=== PATIENT | female | born 1995 | race Caucasian/White ===

== ENCOUNTER 2017-06-13 | Emergency (ER) | payer OTHER | END 2017-06-13 18:40 | disposition home or self-care (01) | DRG 607 | CPT/HCPCS: 99282 ==

== ENCOUNTER 2018-07-05 07:18 | Emergency (ER) | payer SELFPAY ==
[2018-07-05] MEDS ORDERED: SODIUM CHLORIDE 0.9% 1000ML 1,000 ML IV ONE (07:26)
[2018-07-05] MEDS ORDERED: ONDANSETRON HCL 4 MG/2 ML SOL IV ONE (07:30)
[2018-07-05 07:48] LABS: BASOPHILS % (AUTO) 0 % (0-3); EOSINOPHILS % (AUTO) 0 % (0-9); HEMATOCRIT 45 % (35-47); HEMOGLOBIN 14.9 gm/dl (12.0-15.5); LYMPHOCYTES % (AUTO) 9.6 % (10-50); MEAN CORPUSCULAR HEMOGLOBIN 29.9 pg (27.0-32.0); MEAN CORPUSCULAR HGB CONC 32.8 gm/dl (32.0-36.0); MEAN CORPUSCULAR VOLUME 91 fL (81-99); MONOCYTES % (AUTO) 8.9 % (0-12); NEUTROPHILS % (AUTO) 80.9 % (37-80)
[2018-07-05 07:59] LABS: ALBUMIN 3.6 gm/dl (3.4-5.0); BILIRUBIN,TOTAL 1.2 mg/dl (0.2-1.0); CALCIUM 9.1 mg/dl (8.5-10.1); CARBON DIOXIDE 26.6 mEq/L (21-32); CREATININE 0.78 mg/dl (0.60-1.00); TOTAL PROTEIN 8.2 gm/dl (6.4-8.2)
[2018-07-05] MEDS ORDERED: ONDANSETRON HCL 4 MG/2 ML SOL ONE (08:00)
[2018-07-05 08:12] VITALS: RESP 16
[2018-07-05] MEDS ORDERED: MORPHINE SULFATE 10 MG/ML SOL IV ONE ×2 (08:43→11:35)
[2018-07-05 08:56] LABS: APPEARANCE,URINE Slightly Cloudy; BILIRUBIN,URINE NEGATIVE (NEGATIVE); COLOR,URINE Yellow; GLUCOSE, URINE (UA) NEGATIVE (NEGATIVE); KETONES,URINE NEGATIVE (NEGATIVE); LEUKOCYTE ESTERASE ,URINE 2+ (NEGATIVE); NITRATE,URINE NEGATIVE (NEGATIVE); OCCULT BLOOD,URINE TRACE INTACT (NEG-TRACE)
[2018-07-05 09:16] LABS: BACTERIA 1+ (< 1+); CRYSTALS NEGATIVE (0-3 AVE/HPF); EPITHELIAL CELLS 0-3 (SQUAMOUS); RBC,URINE 0-2 (0-3AV/HPF); WBC,URINE 20-30 (0-5AV/HPF)
[2018-07-05] MEDS ORDERED: MORPHINE SULFATE 10 MG/ML SOL ONE ×2 (09:22→11:52)
[2018-07-05] MEDS ORDERED: DOXYCYCLINE 100 MG TAB ONE (10:55)
[2018-07-05] MEDS ORDERED: CEFOXITIN IV SCH (11:00)
[2018-07-05] MEDS ORDERED: [UNRECOGNIZED DRUG - OTHER] IV SCH (11:00)
[2018-07-05] MEDS ORDERED: CEFTRIAXONE 1 GM PDS 2 GM in SODIUM CHLORIDE 0.9% 100 ML 100 ML IV ONE (11:31)
[2018-07-05] MEDS ORDERED: CEFTRIAXONE 1 GM PDS ONE ×2 (11:40)
[2018-07-05 12:51] VITALS: BP 123/72; PULSE 85; TEMP 97.4; O2SAT 95
[2018-07-05] MEDS ORDERED: DOXYCYCLINE 100 MG TAB PO SCH (21:00)
== END 2018-07-05 12:50 | disposition home or self-care (01) | DRG 690 ==
LOC: ED 07:18
DX: N30.00 Acute cystitis without hematuria (principal); N73.9 Female pelvic inflammatory disease, unspecified; Z20.2 Contact with and (suspected) exposure to infections with a predominantly sexual mode of transmission; N76.0 Acute vaginitis
CPT/HCPCS: 74177; 80053; 81001; 84703; 85025; 87088; 87210; 96365; 96366; 96374; 96375; 99284; 99285; J0696; J2270; J2405; Q9967; A9270-GY